=== PATIENT | male | born 1930 | race Caucasian/White ===

== ENCOUNTER 2019-05-14 11:56 | Emergency (ER) | payer MEDICARE, BC ==
[~2019-05-14] VITALS: Ht 176 cm; Wt 82.5 kg
--- NOTE | 2019-05-14 12:35 | ED Lower Extremity ---
General Chief Complaint: Lower Extremity Stated Complaint: RT LEG PAIN Nursing Triage Note: has had right thigh pain and right leg swelling that started last night. No injury to the leg. Nursing Sepsis Screen: No Definite Risk Source: patient History of Present Illness Date Seen by Provider: May 14, 2019 Time Seen by Provider: 12:35 Initial Comments 88-year-old male presenting with complaints of right-sided leg swelling. He states that since last night his leg has swollen up passed this time. He has some pain at the level of his upper thigh and hip. He denies any injury to the leg. He denies having any swelling like this before. He has no fever or chills. There is no increased warmth or redness to the leg. Allergies and Home Medications Allergies Coded Allergies: No Known Drug Allergies (Unverified , 05/14/19) Home Medications Apixaban 5 Mg Tablet, 5 MG PO BID Prescribed by: AMAN DAIGLE on 05/14/19 1416 Patient Home Medication List Home Medication List Reviewed: Yes Review of Systems Constitutional: No chills, No dizziness, No fever, No malaise EENTM: no symptoms reported Respiratory: no symptoms reported Cardiovascular: no symptoms reported Gastrointestinal: no symptoms reported Genitourinary: no symptoms reported Musculoskeletal: see HPI, other (swelling to the right leg up past his thigh) Skin: see HPI; No change in color, No rash Psychiatric/Neurological: No Symptoms Reported Past Fyuxpff-[id number]-Uksmis Hx Patient Social History Alcohol Use: Denies Use Recreational Drug Use: No Smoking Status: Never a Smoker 2nd Hand Smoke Exposure: No Recent Foreign Travel: No Contact w/Someone Who Travel: No Recent Infectious Disease Expo: No Recent Hopitalizations: No Physical Abuse: No Sexual Abuse: No Mistreated: No Fear: No Seasonal Allergies Seasonal Allergies: No Past Medical History Surgeries: Yes (hernia) Respiratory: No Cardiac: No Neurological: No Genitourinary: No Gastrointestinal: No Musculoskeletal: No Endocrine: Yes Diabetes, Non-Insulin dep HEENT: No Cancer: No Psychosocial: No Integumentary: No Physical Exam Vital Signs Vital Signs - First Documented 05/14/19 12:19 Temp 36.7 Pulse 118 Resp 16 B/P (MAP) 189/88 (121) Pulse Ox 97 Capillary Refill : Less Than 3 Seconds Height, Weight, BMI Height: '" Weight: lbs. oz. kg; 26.00 BMI Method: General Appearance: WD/WN, no apparent distress HEENT: pharynx normal Neck: non-tender, supple Cardiovascular: normal peripheral pulses, tachycardia Respiratory: chest non-tender, lungs clear, normal breath sounds Gastrointestinal: normal bowel sounds, non tender, soft, no pulsatile mass Hips: right hip swelling Legs: right leg swelling Knees: right knee swelling Ankles: right ankle swelling Feet: right foot swelling Neurologic/Tendon: normal motor functions, normal tendon functions, sensory deficit (decreased sensation to BLE ) Neurologic/Psychiatric: alert Skin: normal color, warm/dry Progress/Results/Core Measures Results/Orders Lab Results Laboratory Tests Test 05/14/19 12:57 Range/Units White Blood Count 8.0 4.3-11.0 10^3/uL Red Blood Count 5.13 4.35-5.85 10^6/uL Hemoglobin 15.7 13.3-17.7 G/DL Hematocrit 46 40-54 % Mean Corpuscular Volume 90 80-99 FL Mean Corpuscular Hemoglobin 31 25-34 PG Mean Corpuscular Hemoglobin Concent 34 32-36 G/DL Red Cell Distribution Width 13.2 10.0-14.5 % Platelet Count 128 L 130-400 10^3/uL Mean Platelet Volume 11.1 H 7.4-10.4 FL Neutrophils (%) (Auto) 76 H 42-75 % Lymphocytes (%) (Auto) 11 L 12-44 % Monocytes (%) (Auto) 11 0-12 % Eosinophils (%) (Auto) 1 0-10 % Basophils (%) (Auto) 1 0-10 % Neutrophils # (Auto) 6.1 1.8-7.8 X 10^3 Lymphocytes # (Auto) 0.9 L 1.0-4.0 X 10^3 Monocytes # (Auto) 0.9 0.0-1.0 X 10^3 Eosinophils # (Auto) 0.1 0.0-0.3 10^3/uL Basophils # (Auto) 0.1 0.0-0.1 10^3/uL Prothrombin Time 14.3 12.2-14.7 SEC INR Comment 1.1 0.8-1.4 Activated Partial Thromboplast Time 28 24-35 SEC D-Dimer 14.34 H 0.00-0.49 UG/ML Sodium Level 130 L 135-145 MMOL/L Potassium Level 5.0 3.6-5.0 MMOL/L Chloride Level 93 L 98-107 MMOL/L Carbon Dioxide Level 24 21-32 MMOL/L Anion Gap 13 5-14 MMOL/L Blood Urea Nitrogen 37 H 7-18 MG/DL Creatinine 1.19 0.60-1.30 MG/DL Estimat Glomerular Filtration Rate 58 BUN/Creatinine Ratio 31 Glucose Level 542 *H 70-105 MG/DL Calcium Level 9.1 8.5-10.1 MG/DL Corrected Calcium 9.2 8.5-10.1 MG/DL Total Bilirubin 1.0 0.1-1.0 MG/DL Aspartate Amino Transf (AST/SGOT) 17 5-34 U/L Alanine Aminotransferase (ALT/SGPT) 13 0-55 U/L Alkaline Phosphatase 121 40-136 U/L Total Protein 7.3 6.4-8.2 GM/DL Albumin 3.9 3.2-4.5 GM/DL My Orders Orders - AMAN DAIGLE MD Comprehensive Metabolic Panel (05/14/19 12:51) Ed Iv/Invasive Line Start (05/14/19 12:51) Cbc With Automated Diff (05/14/19 12:51) Fibrin Degradation Products (05/14/19 12:51) Protime With Inr (05/14/19 12:51) Partial Thromboplastin Time (05/14/19 12:51) Enoxaparin Injection (Lovenox Injection) (05/14/19 13:51) Insulin (Regular) Human (Humulin R (Per (05/14/19 14:05) Vital Signs/I&O 05/14/19 05/14/19 12:19 14:41 Temp 36.7 36.8 Pulse 118 91 Resp 16 18 B/P (MAP) 189/88 (121) 127/65 Pulse Ox 97 97 Blood Pressure Mean: 121 Progress Progress Note #1: Progress Note Check labs and d-dimer to evaluate for possible DVT. Progress Note #2: Time: 14:06 Progress Note Labs show an elevated glucose as well as d-dimer. Will cover with anticoagulants until he can get an ultrasound through the clinic and give additional insulin here to help bring his sugar down. He states that he ate just prior to coming to the emergency department Update patient and family about results. Given down time ordered for DVT study. Advised to call the clinic on Thursday to arrange for this study to be done. Prescription for Eliquis sent to the pharmacy and given a Lovenox shot here prior to discharge Departure Impression Primary Impression: Swelling of right lower extremity Additional Impressions: Hyperglycemia due to type 2 diabetes mellitus Qualified Codes: E11.65 - Type 2 diabetes mellitus with hyperglycemia Deep vein thrombosis (DVT) of right lower extremity Qualified Codes: I82.401 - Acute embolism and thrombosis of unspecified deep veins of right lower extremity Disposition: HOME, SELF-CARE Condition: Stable Departure-Patient Inst. Decision time for Depature: 14:12 Referrals: SELF,LIN[facility] [place] Patient Instructions: Deep Vein Thrombosis (Blood Clots in the Legs) (DC), Hyperglycemia, Adult (DC), Swelling Add. Discharge Instructions: Take the blood thinner to help treat for swelling and clot in your right leg. Call the clinic on Thursday to see what time to come in and be seen for the ultrasound of your leg. Also check to see your provider about your diabetes and the sugars running high. All discharge instructions reviewed with patient and/or family. Voiced understanding. Scripts Apixaban (Eliquis) 5 Mg Tablet 5 MG PO BID for DVT right leg for 5 Days, #10 TAB 0 Refills Prov: AMAN DAIGLE MD 05/14/19 AMAN DAIGLE MD May 14, 2019 12:35
--- NOTE | 2019-05-14 12:39 | NUR ---
Right sided pedal pulses found with doppler.
[2019-05-14 13:17] LABS: HEMATOCRIT 46 % (40-54); HEMOGLOBIN 15.7 G/DL (13.3-17.7); LYMPHOCYTES % (AUTO) 11 % (12-44); MEAN CORPUSCULAR HEMOGLOBIN 31 PG (25-34); MEAN CORPUSCULAR HGB CONC 34 G/DL (32-36); MEAN CORPUSCULAR VOLUME 90 FL (80-99); MEAN PLATELET VOLUME 11.1 FL (7.4-10.4); NEUTROPHILS % (AUTO) 76 % (42-75); PLATELET COUNT 128 10^3/uL (130-400); RED CELL DISTRIBUTION WIDTH 13.2 % (10.0-14.5)
[2019-05-14 13:18] LABS: BASOPHILS # (AUTO) 0.1 10^3/uL (0.0-0.1); BASOPHILS % (AUTO) 1 % (0-10); EOSINOPHILS # (AUTO) 0.1 10^3/uL (0.0-0.3); EOSINOPHILS % (AUTO) 1 % (0-10); LYMPHOCYTES # (AUTO) 0.9 X 10^3 (1.0-4.0); MONOCYTES # (AUTO) 0.9 X 10^3 (0.0-1.0); MONOCYTES % (AUTO) 11 % (0-12); NEUTROPHILS # (AUTO) 6.1 X 10^3 (1.8-7.8)
[2019-05-14 13:47] LABS: CREATININE SERUM 1.19 MG/DL (0.60-1.30); FIBRIN DEGRADATION PRODUCTS 14.34 UG/ML (0.00-0.49); INR 1.1 (0.8-1.4); PROTHROMBIN TIME PATIENT 14.3 SEC (12.2-14.7)
[2019-05-14 13:48] LABS: ALBUMIN 3.9 GM/DL (3.2-4.5); CALCIUM 9.1 MG/DL (8.5-10.1); TOTAL PROTEIN 7.3 GM/DL (6.4-8.2)
[2019-05-14] MEDS ORDERED: ENOXAPARIN 80 MG/0.8 ML (LOVENOX) SYR SC STA (13:51)
[2019-05-14] MEDS ORDERED: inSUlin (REGULAR) HUMAN 1 UNIT/0.01 ML (CHARGE PER UNIT) SC STA (14:05)
[2019-05-14] MEDS ORDERED: APIX5TAB PO (14:16)
[2019-05-14 14:41] VITALS: BP 127/65
== END 2019-05-14 14:41 | disposition home or self-care (01) ==
LOC: EDBD 11:58 → ER FS 11:58
DX: I82.401 Acute embolism and thrombosis of unspecified deep veins of right lower extremity (principal); E11.65 Type 2 diabetes mellitus with hyperglycemia; Z79.01 Long term (current) use of anticoagulants
CPT/HCPCS: 36415; 80053; 85025; 85379; 85610; 85730